=== PATIENT | male | born 1955 | race African-American/Black ===

== ENCOUNTER 2017-05-11 05:51 | Emergency (ER) | payer SELFPAY ==
[~2017-05-11] VITALS: Ht 177.8 cm; Wt 70.5 kg
[2017-05-11] MEDS ORDERED: KETOROLAC TROMETHAMINE 60 MG/2 ML VIAL IM ONE (06:45)
[2017-05-11 08:01] VITALS: BP 151/92
== END 2017-05-11 08:03 | disposition home or self-care (01) ==
LOC: EMS 05:52
DX: S13.4XXA Sprain of ligaments of cervical spine, initial encounter (principal); F17.210 Nicotine dependence, cigarettes, uncomplicated; V49.50XA Passenger injured in collision with unspecified motor vehicles in traffic accident, initial encounter; Y93.89 Activity, other specified; Y92.89 Other specified places as the place of occurrence of the external cause; Y99.8 Other external cause status
CPT/HCPCS: 72040; 96372; 99284; J1885

== ENCOUNTER 2017-09-26 16:38 | Emergency (ER) | payer SELFPAY ==
[~2017-09-26] VITALS: Ht 172.7 cm; Wt 65.9 kg
[2017-09-26 16:50] VITALS: BP 131/74
[2017-09-26] MEDS ORDERED: PERMETHRIN 5% 60 GM CREAM TP ONE (18:00)
[2017-09-26] MEDS ORDERED: DiphenhydrAMINE HCL 25 MG CAPSULE PO ONE (18:00)
== END 2017-09-26 18:20 | disposition home or self-care (01) ==
LOC: EMS 16:39
DX: B86 Scabies (principal); F17.210 Nicotine dependence, cigarettes, uncomplicated
CPT/HCPCS: 99283; 99406

== ENCOUNTER 2018-01-12 09:02 | Emergency (ER) | payer MEDICAID ==
[~2018-01-12] VITALS: Ht 177.8 cm; Wt 65.9 kg
[2018-01-12 09:50] LABS: BASOPHILS % (AUTO) 0.6 % (0.0-2.0); EOSINOPHILS % (AUTO) 2.3 % (1.0-6.0); HEMATOCRIT 41.4 % (41-53); HEMOGLOBIN 14.1 g/dL (13.5-17.5); LYMPHOCYTES % (AUTO) 23.6 % (22.0-44.0); MEAN CORPUSCULAR HEMOGLOBIN 30.6 pg (26.0-34.0); MEAN CORPUSCULAR VOLUME 90 fL (80-100); MONOCYTES # (AUTO) 0.8 K/uL (0.1-1.0); MONOCYTES % (AUTO) 17.5 % (2.0-9.0); NEUTROPHILS # (AUTO) 2.5 K/uL (1.8-7.7); PLATELET COUNT (AUTO) 223 K/uL (150-450); RED CELL DISTRIBUTION WIDTH 14.5 % (11.5-14.5)
[2018-01-12 09:58] LABS: ANION GAP 10 mmol/L (8-16); CALCIUM, TOTAL 8.7 mg/dL (8.8-10.5); CARBON DIOXIDE 26 mmol/L (22-29); CHLORIDE 102 mmol/L (98-107); GLOMERULAR FILTR. RATE CALC 44 mL/min (>60); GLUCOSE,RANDOM 96 mg/dL (70-110); POTASSIUM 3.3 mmol/L (3.5-5.1); SODIUM SERUM 138 mmol/L (136-145); UREA NITROGEN, BLOOD 19 mg/dL (7-18)
[2018-01-12 10:11] LABS: B-TYPE NATRIURETIC PEPTIDE 9 pg/mL (0-100)
[2018-01-12 10:23] LABS: ALANINE AMINOTRANSFERASE 20 U/L (12-78); ALBUMIN 3.6 g/dL (3.4-5.0); ALKALINE PHOSPHATASE 53 U/L (46-116); ASPARTATE AMINOTRANSFERASE 27 U/L (15-37); BILIRUBIN,TOTAL 0.3 mg/dL (0.1-1.0); CREATINE KINASE MB 1.9 ng/mL (0-5); CREATINE KINASE, TOTAL 187 U/L (39-308); TOTAL PROTEIN, SERUM 7.6 g/dL (6.4-8.2)
[2018-01-12] MEDS ORDERED: SODIUM CHLORIDE 0.9% 1,000 ML IV ONE (10:30)
[2018-01-12] MEDS ORDERED: KETOROLAC TROMETHAMINE 30 MG/ML VIAL IVP ONE (12:30)
[2018-01-12] MEDS ORDERED: ACETAMINOPHEN 500 MG TABLET PO ONE (12:30)
[2018-01-12 12:35] LABS: AMPHET/METH SCREEN,URINE POSITIVE (NEGATIVE); BARBITURATE SCREEN, URINE NEGATIVE (NEGATIVE); BENZODIAZEPINES SCREEN,URINE NEGATIVE (NEGATIVE); CANNABINOID SCREEN,URINE POSITIVE (NEGATIVE); COCAINE SCREEN,URINE NEGATIVE (NEGATIVE); METHADONE SCREEN, URINE NEGATIVE (NEGATIVE); OPIATE SCREEN,URINE NEGATIVE (NEGATIVE)
[2018-01-12 12:37] LABS: PHENCYCLIDINE SCREEN,URINE POSITIVE (NEGATIVE)
[2018-01-12 12:40] LABS: APPEARANCE,URINE CLOUDY (CLEAR); BILIRUBIN,URINE NEGATIVE (NEGATIVE); GLUCOSE, URINE (UA) NEGATIVE (NEGATIVE); KETONES,URINE NEGATIVE (NEGATIVE); LEUKOCYTE ESTERASE ,URINE NEGATIVE (NEGATIVE); NITRATE,URINE NEGATIVE (NEGATIVE); OCCULT BLOOD,URINE SMALL (NEGATIVE); PH,URINE 5.5 (5.0-8.0); PROTEIN,URINE POS 1+ (NEGATIVE)
[2018-01-12 12:56] LABS: BACTERIA,URINE None Seen /HPF (None Seen); HYALINE CASTS, URINE 0-2 /LPF (None Seen); RBC,URINE 0-2 /HPF (0-2); SQUAMOUS EPITHELIAL CELL,UR Few /LPF (None Seen); WBC,URINE 0-2 /HPF (0-5)
[2018-01-12 13:09] VITALS: BP 121/75
== END 2018-01-12 13:10 | disposition home or self-care (01) ==
LOC: EMS 09:03
DX: E86.0 Dehydration (principal); I12.9 Hypertensive chronic kidney disease with stage 1 through stage 4 chronic kidney disease, or unspecified chronic kidney disease; N18.9 Chronic kidney disease, unspecified; R06.02 Shortness of breath; M54.2 Cervicalgia; F17.210 Nicotine dependence, cigarettes, uncomplicated
CPT/HCPCS: 36415; 71046; 80053; 80307; 81001; 82550; 82553; 83880; 84484; 85025; 93005; 96361; 96374; 99285; J1885; J7030

== ENCOUNTER 2018-10-13 08:13 | Emergency (ER) | payer SELFPAY ==
[~2018-10-13] VITALS: Ht 177.8 cm; Wt 68.0 kg
[2018-10-13] MEDS ORDERED: HYDROCODONE/ACETAMINOPHEN 5-325 MG TABLET PO ONE (09:00)
[2018-10-13] MEDS ORDERED: KETOROLAC TROMETHAMINE 60 MG/2 ML VIAL IM ONE (10:30)
[2018-10-13 11:34] VITALS: BP 123/76
== END 2018-10-13 12:03 | disposition home or self-care (01) ==
LOC: EMS 08:14
DX: S70.01XA Contusion of right hip, initial encounter (principal); R51 Headache; F17.210 Nicotine dependence, cigarettes, uncomplicated; Y04.0XXA Assault by unarmed brawl or fight, initial encounter; Y93.89 Activity, other specified; Y92.89 Other specified places as the place of occurrence of the external cause; Y99.8 Other external cause status
CPT/HCPCS: 70450; 72125; 73502; 96372; 99284; 99406; J1885

== ENCOUNTER 2019-01-23 14:15 | Emergency (ER) | payer SELFPAY ==
[~2019-01-23] VITALS: Ht 180.3 cm; Wt 63.6 kg
[2019-01-23] MEDS ORDERED: KETOROLAC TROMETHAMINE 30 MG/ML VIAL IM ONE (15:45)
[2019-01-23 17:51] VITALS: BP 129/63
== END 2019-01-23 17:52 | disposition home or self-care (01) ==
LOC: EMS 14:16
DX: S70.02XA Contusion of left hip, initial encounter (principal); M54.32 Sciatica, left side; R03.0 Elevated blood-pressure reading, without diagnosis of hypertension; F17.210 Nicotine dependence, cigarettes, uncomplicated; W01.0XXA Fall on same level from slipping, tripping and stumbling without subsequent striking against object, initial encounter; Y93.89 Activity, other specified; Y92.89 Other specified places as the place of occurrence of the external cause; Y99.8 Other external cause status
CPT/HCPCS: 72170; 96372; 99283; 99406; J1885

== ENCOUNTER 2019-05-31 12:05 | Emergency (ER) | payer SELFPAY ==
[~2019-05-31] VITALS: Ht 180.3 cm; Wt 59.1 kg
[2019-05-31] MEDS ORDERED: ONDANSETRON HCL 4 MG/2 ML VIAL IVP ONE (12:30)
[2019-05-31] MEDS ORDERED: SODIUM CHLORIDE 0.9% 1,000 ML IV ONE (12:30)
[2019-05-31 12:59] LABS: BASOPHILS % (AUTO) 0.8 % (0.0-2.0); EOSINOPHILS % (AUTO) 1.6 % (1.0-6.0); HEMATOCRIT 42.7 % (41-53); HEMOGLOBIN 14.1 g/dL (13.5-17.5); LYMPHOCYTES # (AUTO) 1.5 K/uL (1.0-4.8); LYMPHOCYTES % (AUTO) 26.3 % (22.0-44.0); MEAN CORPUSCULAR HEMOGLOBIN 30.5 pg (26.0-34.0); MEAN CORPUSCULAR HGB CONC 33.1 G/dL (31.0-37.0); MEAN CORPUSCULAR VOLUME 92 fL (80-100); MONOCYTES # (AUTO) 0.6 K/uL (0.1-1.0); MONOCYTES % (AUTO) 10.7 % (2.0-9.0); NEUTROPHILS # (AUTO) 3.4 K/uL (1.8-7.7); NEUTROPHILS % (AUTO) 60.6 % (40.0-70.0); PLATELET COUNT (AUTO) 268 K/uL (150-450); RED BLOOD CELL COUNT(AUTO) 4.64 MIL/uL (4.50-5.90); RED CELL DISTRIBUTION WIDTH 14.2 % (11.5-14.5)
[2019-05-31 13:09] LABS: ANION GAP 8 mmol/L (8-16); CALCIUM, TOTAL 8.6 mg/dL (8.8-10.5); CARBON DIOXIDE 26 mmol/L (22-29); CHLORIDE 104 mmol/L (98-107); GLOMERULAR FILTR. RATE CALC 46 mL/min (>60); GLUCOSE,RANDOM 101 mg/dL (70-110); POTASSIUM 4.1 mmol/L (3.5-5.1); SODIUM SERUM 138 mmol/L (136-145); UREA NITROGEN, BLOOD 22 mg/dL (7-18)
[2019-05-31 13:17] LABS: ALANINE AMINOTRANSFERASE 16 U/L (12-78); ALBUMIN 3.7 g/dL (3.4-5.0); ALKALINE PHOSPHATASE 63 U/L (46-116); ASPARTATE AMINOTRANSFERASE 24 U/L (15-37); BILIRUBIN,TOTAL 0.5 mg/dL (0.1-1.0); TOTAL PROTEIN, SERUM 7.4 g/dL (6.4-8.2)
[2019-05-31 13:40] VITALS: BP 146/99
[2019-05-31 14:34] LABS: APPEARANCE,URINE CLEAR (CLEAR); BILIRUBIN,URINE NEGATIVE (NEGATIVE); GLUCOSE, URINE (UA) NEGATIVE (NEGATIVE); KETONES,URINE NEGATIVE (NEGATIVE); LEUKOCYTE ESTERASE ,URINE NEGATIVE (NEGATIVE); NITRATE,URINE NEGATIVE (NEGATIVE); OCCULT BLOOD,URINE NEGATIVE (NEGATIVE); PH,URINE 5.5 (5.0-8.0); PROTEIN,URINE NEGATIVE (NEGATIVE)
[2019-05-31 14:39] LABS: AMPHET/METH SCREEN,URINE POSITIVE (NEGATIVE); BARBITURATE SCREEN, URINE NEGATIVE (NEGATIVE); BENZODIAZEPINES SCREEN,URINE NEGATIVE (NEGATIVE); CANNABINOID SCREEN,URINE POSITIVE (NEGATIVE); COCAINE SCREEN,URINE NEGATIVE (NEGATIVE); METHADONE SCREEN, URINE NEGATIVE (NEGATIVE); OPIATE SCREEN,URINE NEGATIVE (NEGATIVE)
[2019-05-31 14:40] LABS: BACTERIA,URINE None Seen /HPF (None Seen); PHENCYCLIDINE SCREEN,URINE POSITIVE (NEGATIVE); RBC,URINE None Seen /HPF (0-2); WBC,URINE None Seen /HPF (0-5)
== END 2019-05-31 15:04 | disposition home or self-care (01) ==
LOC: EMS 12:06
DX: R42 Dizziness and giddiness (principal); R11.0 Nausea; I10 Essential (primary) hypertension; F17.210 Nicotine dependence, cigarettes, uncomplicated
CPT/HCPCS: 36415; 71046; 80053; 80307; 81001; 84484; 85025; 93005; 96361; 96374; 99284; G0480; J2405; J7030

== ENCOUNTER 2019-09-17 04:41 | Emergency (ER) | payer MEDICAID ==
[~2019-09-17] VITALS: Ht 177.8 cm; Wt 62.0 kg
[2019-09-17] MEDS ORDERED: CloNIDine HCL 0.2 MG TABLET PO ONE (05:15)
[2019-09-17] MEDS ORDERED: ONDANSETRON HCL 4 MG/2 ML VIAL IVP ONE ×2 (05:15→06:30)
[2019-09-17] MEDS ORDERED: SODIUM CHLORIDE 0.9% 1,000 ML IV ONE (05:15)
[2019-09-17 05:52] LABS: BASOPHILS % (AUTO) 0.4 % (0.0-2.0); EOSINOPHILS % (AUTO) 1.1 % (1.0-6.0); HEMATOCRIT 42.3 % (41-53); HEMOGLOBIN 13.6 g/dL (13.5-17.5); LYMPHOCYTES # (AUTO) 0.8 K/uL (1.0-4.8); LYMPHOCYTES % (AUTO) 11.1 % (22.0-44.0); MEAN CORPUSCULAR HEMOGLOBIN 29.5 pg (26.0-34.0); MEAN CORPUSCULAR HGB CONC 32.1 G/dL (31.0-37.0); MEAN CORPUSCULAR VOLUME 92 fL (80-100); MONOCYTES # (AUTO) 0.4 K/uL (0.1-1.0); MONOCYTES % (AUTO) 4.9 % (2.0-9.0); NEUTROPHILS % (AUTO) 82.5 % (40.0-70.0); PLATELET COUNT (AUTO) 269 K/uL (150-450); RED BLOOD CELL COUNT(AUTO) 4.61 MIL/uL (4.50-5.90); RED CELL DISTRIBUTION WIDTH 14.8 % (11.5-14.5)
[2019-09-17 06:02] LABS: ANION GAP 6 mmol/L (8-16); CALCIUM, TOTAL 8.9 mg/dL (8.8-10.5); CARBON DIOXIDE 29 mmol/L (22-29); CHLORIDE 102 mmol/L (98-107); CREATININE 1.41 mg/dL (0.60-1.30); GLOMERULAR FILTR. RATE CALC > 60 mL/min (>60); GLUCOSE,RANDOM 125 mg/dL (70-110); SODIUM SERUM 137 mmol/L (136-145); UREA NITROGEN, BLOOD 28 mg/dL (7-18)
[2019-09-17 06:27] LABS: ALANINE AMINOTRANSFERASE 20 U/L (12-78); ALBUMIN 4.2 g/dL (3.4-5.0); ALKALINE PHOSPHATASE 64 U/L (46-116); ASPARTATE AMINOTRANSFERASE 18 U/L (15-37); BILIRUBIN,TOTAL 0.2 mg/dL (0.1-1.0); CREATINE KINASE, TOTAL ONLY 210 U/L (39-308); LIPASE 153 U/L (73-393); TOTAL PROTEIN, SERUM 8.4 g/dL (6.4-8.2)
[2019-09-17] MEDS ORDERED: PB/HYOSCY/ATR/SCOP/LIDO/MAALOX 55 ML BOTTLE PO ONE (06:30)
[2019-09-17] MEDS ORDERED: FAMOTIDINE 10 MG/ML 2 ML VIAL IVP ONE (06:30)
[2019-09-17 07:02] LABS: APPEARANCE,URINE CLEAR (CLEAR); BILIRUBIN,URINE NEGATIVE (NEGATIVE); GLUCOSE, URINE (UA) NEGATIVE (NEGATIVE); KETONES,URINE NEGATIVE (NEGATIVE); LEUKOCYTE ESTERASE ,URINE NEGATIVE (NEGATIVE); NITRATE,URINE NEGATIVE (NEGATIVE); OCCULT BLOOD,URINE NEGATIVE (NEGATIVE); PROTEIN,URINE NEGATIVE (NEGATIVE); UROBILINOGEN,URINE 0.2 mg/dL (<=1.0)
[2019-09-17 07:06] LABS: AMPHET/METH SCREEN,URINE POSITIVE (NEGATIVE); BARBITURATE SCREEN, URINE NEGATIVE (NEGATIVE); BENZODIAZEPINES SCREEN,URINE NEGATIVE (NEGATIVE); CANNABINOID SCREEN,URINE NEGATIVE (NEGATIVE); COCAINE SCREEN,URINE NEGATIVE (NEGATIVE); METHADONE SCREEN, URINE NEGATIVE (NEGATIVE); OPIATE SCREEN,URINE NEGATIVE (NEGATIVE)
[2019-09-17 07:10] LABS: PHENCYCLIDINE SCREEN,URINE POSITIVE (NEGATIVE)
[2019-09-17 07:23] LABS: BACTERIA,URINE None Seen /HPF (None Seen); RBC,URINE None Seen /HPF (0-2); WBC,URINE None Seen /HPF (0-5)
[2019-09-17 07:53] VITALS: BP 157/81
== END 2019-09-17 07:54 | disposition home or self-care (01) ==
LOC: EMS 04:42
DX: F15.129 Other stimulant abuse with intoxication, unspecified (principal); F16.929 Hallucinogen use, unspecified with intoxication, unspecified; F17.210 Nicotine dependence, cigarettes, uncomplicated
CPT/HCPCS: 36415; 80053; 80307; 81001; 82550; 83605; 83690; 83735; 83880; 84484; 85025; 93005; 96361; 96374; 96375; 99284; 99406; G0480; J2405; J3490; J7030

== ENCOUNTER 2019-12-16 00:44 | Emergency (ER) | payer MEDICAID ==
[~2019-12-16] VITALS: Ht 185.4 cm; Wt 70.5 kg
[2019-12-16 02:41] VITALS: BP 130/78
== END 2019-12-16 02:40 | disposition home or self-care (01) ==
LOC: EMS 00:44
DX: M79.631 Pain in right forearm (principal); M25.531 Pain in right wrist; I10 Essential (primary) hypertension; F17.210 Nicotine dependence, cigarettes, uncomplicated
CPT/HCPCS: 99283; Z7502

== ENCOUNTER 2020-07-15 16:29 | Emergency (ER) | payer MEDICAID ==
[~2020-07-15] VITALS: Ht 180.3 cm; Wt 68.2 kg
[2020-07-15] MEDS ORDERED: AMOX TR/POT CLAV 875 MG/125 MG TABLET PO ONE (17:45)
[2020-07-15] MEDS ORDERED: TraMADol HCL 50 MG TABLET PO ONE (17:45)
[2020-07-15 18:00] LABS: BASOPHILS % (AUTO) 0.6 % (0.0-2.0); CALCIUM, TOTAL 9.3 mg/dL (8.8-10.5); CREATININE 1.36 mg/dL (0.60-1.30); EOSINOPHILS % (AUTO) 2.9 % (1.0-6.0); HEMATOCRIT 36.2 % (41-53); HEMOGLOBIN 11.7 g/dL (13.5-17.5); LYMPHOCYTES # (AUTO) 2.1 K/uL (1.0-4.8); LYMPHOCYTES % (AUTO) 19.8 % (22.0-44.0); MEAN CORPUSCULAR HEMOGLOBIN 30.1 pg (26.0-34.0); MEAN CORPUSCULAR HGB CONC 32.4 G/dL (31.0-37.0); MEAN CORPUSCULAR VOLUME 93 fL (80-100); MONOCYTES # (AUTO) 0.8 K/uL (0.1-1.0); MONOCYTES % (AUTO) 7.6 % (2.0-9.0); NEUTROPHILS # (AUTO) 7.3 K/uL (1.8-7.7); NEUTROPHILS % (AUTO) 69.1 % (40.0-70.0); PLATELET COUNT (AUTO) 318 K/uL (150-450); POTASSIUM 4.6 mmol/L (3.5-5.1); RED BLOOD CELL COUNT(AUTO) 3.91 MIL/uL (4.50-5.90); RED CELL DISTRIBUTION WIDTH 14.4 % (11.5-14.5)
[2020-07-15 18:06] LABS: ALBUMIN 3.9 g/dL (3.4-5.0); BILIRUBIN,TOTAL 0.5 mg/dL (0.1-1.0); TOTAL PROTEIN, SERUM 8.1 g/dL (6.4-8.2)
[2020-07-15 18:22] VITALS: BP 158/92
== END 2020-07-15 18:37 | disposition home or self-care (01) ==
LOC: EMS 16:29
DX: S20.212A Contusion of left front wall of thorax, initial encounter (principal); K04.7 Periapical abscess without sinus; I10 Essential (primary) hypertension; F17.210 Nicotine dependence, cigarettes, uncomplicated; X58.XXXA Exposure to other specified factors, initial encounter; Y93.89 Activity, other specified; Y92.89 Other specified places as the place of occurrence of the external cause; Y99.8 Other external cause status
CPT/HCPCS: 93005; 99285; 36415-L1; 36415-TC; 71045-TC

== ENCOUNTER 2023-01-19 00:57 | Emergency (ER) | payer MEDICARE, OTHER ==
[~2023-01-19] VITALS: Ht 180.3 cm; Wt 56.8 kg
[2023-01-19 02:07] VITALS: TEMP 98.4
[2023-01-19] MEDS ORDERED: ASPIRIN 81 MG CHEWABLE TABLET PO ONE (02:30)
[2023-01-19] MEDS ORDERED: NITROGLYCERIN 2% (1 GM=INCH) OINTMENT PACKET TP ONE (02:30)
[2023-01-19 02:37] LABS: EOSINOPHILS % (AUTO) 3.2 % (1.0-6.0); HEMATOCRIT 39.5 % (41-53); LYMPHOCYTES # (AUTO) 2.5 K/uL (1.0-4.8); LYMPHOCYTES % (AUTO) 30.3 % (22.0-44.0); MEAN CORPUSCULAR HEMOGLOBIN 30.6 pg (26.0-34.0); MEAN CORPUSCULAR HGB CONC 32.9 G/dL (31.0-37.0); MEAN CORPUSCULAR VOLUME 93 fL (80-100); MONOCYTES % (AUTO) 11.7 % (2.0-9.0); NEUTROPHILS # (AUTO) 4.5 K/uL (1.8-7.7); NEUTROPHILS % (AUTO) 53.8 % (40.0-70.0); PLATELET COUNT (AUTO) 282 K/uL (150-450); RED BLOOD CELL COUNT(AUTO) 4.25 MIL/uL (4.50-5.90); RED CELL DISTRIBUTION WIDTH 14.8 % (11.5-14.5)
[2023-01-19 02:50] LABS: CALCIUM, TOTAL 8.6 mg/dL (8.8-10.5); CREATININE 1.24 mg/dL (0.60-1.30); POTASSIUM 3.7 mmol/L (3.5-5.1)
[2023-01-19 02:55] LABS: PROTHROMBIN TIME 10.1 SEC (9.4-11.6)
[2023-01-19 03:15] LABS: ALBUMIN 3.3 g/dL (3.4-5.0); BILIRUBIN,TOTAL 0.2 mg/dL (0.1-1.0); TOTAL PROTEIN, SERUM 6.9 g/dL (6.4-8.2)
[2023-01-19] MEDS ORDERED: AmLODIPine BESYLATE 5 MG TABLET PO ONE (04:30)
[2023-01-19] MEDS ORDERED: AMLO-257 PO (04:31)
[2023-01-19 04:57] LABS: APPEARANCE,URINE CLEAR (CLEAR); BILIRUBIN,URINE NEGATIVE (NEGATIVE); GLUCOSE, URINE (UA) NEGATIVE (NEGATIVE); KETONES,URINE NEGATIVE (NEGATIVE); LEUKOCYTE ESTERASE ,URINE NEGATIVE (NEGATIVE); NITRATE,URINE NEGATIVE (NEGATIVE); OCCULT BLOOD,URINE NEGATIVE (NEGATIVE); SPECIFIC GRAVITIY, URINE 1.023 (1.003-1.030); UROBILINOGEN,URINE <=1.0 mg/dL (<=1.0)
[2023-01-19 05:00] LABS: PROTEIN,URINE NEGATIVE (NEGATIVE)
[2023-01-19 05:07] LABS: AMPHET/METH SCREEN,URINE POSITIVE (NEGATIVE); BARBITURATE SCREEN, URINE NEGATIVE (NEGATIVE); BENZODIAZEPINES SCREEN,URINE NEGATIVE (NEGATIVE); CANNABINOID SCREEN,URINE POSITIVE (NEGATIVE); COCAINE SCREEN,URINE NEGATIVE (NEGATIVE); METHADONE SCREEN, URINE NEGATIVE (NEGATIVE); OPIATE SCREEN,URINE NEGATIVE (NEGATIVE); PHENCYCLIDINE SCREEN,URINE POSITIVE (NEGATIVE)
[2023-01-19 05:18] VITALS: BP 143/75; PULSE 80; RESP 17
== END 2023-01-19 05:44 | disposition home or self-care (01) ==
LOC: EMS 01:00
DX: M62.838 Other muscle spasm (principal); R07.89 Other chest pain; I10 Essential (primary) hypertension; F15.10 Other stimulant abuse, uncomplicated; F17.210 Nicotine dependence, cigarettes, uncomplicated; Z91.148 Patient's other noncompliance with medication regimen for other reason
CPT/HCPCS: 71045; 80053; 80307; 81003; 82550; 83880; 84484; 85025; 85610; 85730; 93005; 99285; 36415-L1; 36415-TC

== ENCOUNTER 2023-08-03 13:51 | Emergency (ER) | payer MEDICARE, OTHER ==
[~2023-08-03] VITALS: Ht 180.3 cm; Wt 68.2 kg
[~2023-08-03 13:51] MED LIST: AMLO-257 PO
[2023-08-03 13:55] VITALS: TEMP 98
[2023-08-03 15:49] VITALS: BP 157/102; PULSE 88; RESP 16
== END 2023-08-03 16:13 | disposition home or self-care (01) ==
LOC: EMS 14:01
DX: I10 Essential (primary) hypertension (principal); F17.210 Nicotine dependence, cigarettes, uncomplicated; Z13.9 Encounter for screening, unspecified
CPT/HCPCS: 99281; Z7502

== ENCOUNTER 2023-08-12 12:59 | Emergency (ER) | payer MEDICARE, OTHER ==
[~2023-08-12] VITALS: Ht 170.2 cm; Wt 61.4 kg
[2023-08-12 13:04] VITALS: BP 134/82; PULSE 100; RESP 18; TEMP 98.2
[2023-08-12] MEDS: KETOROLAC TROMETHAMINE 30 MG/ML VIAL IM ONE (13:51)
[2023-08-12] MEDS: LIDOCAINE 5% TRANSDERMAL PATCH TD ONE (13:51)
== END 2023-08-12 13:52 | disposition home or self-care (01) ==
LOC: EMS 12:59
DX: M54.32 Sciatica, left side (principal); I10 Essential (primary) hypertension; F17.210 Nicotine dependence, cigarettes, uncomplicated; Z13.9 Encounter for screening, unspecified
CPT/HCPCS: 99283; 96372; J1885

== ENCOUNTER 2023-08-17 07:27 | Emergency (ER) | payer MEDICARE, OTHER ==
[~2023-08-17] VITALS: Ht 170.2 cm; Wt 63.6 kg
[2023-08-17 07:32] VITALS: TEMP 98.3
[2023-08-17 08:03] LABS: APPEARANCE,URINE CLEAR (CLEAR); BILIRUBIN,URINE NEGATIVE (NEGATIVE); COLOR,URINE LIGHT YELLOW (YELLOW); GLUCOSE, URINE (UA) NEGATIVE (NEGATIVE); KETONES,URINE NEGATIVE (NEGATIVE); LEUKOCYTE ESTERASE ,URINE NEGATIVE (NEGATIVE); NITRATE,URINE NEGATIVE (NEGATIVE); OCCULT BLOOD,URINE NEGATIVE (NEGATIVE); PH,URINE 5.5 (5.0-8.0); PROTEIN,URINE TRACE mg/dL (NEGATIVE); SPECIFIC GRAVITIY, URINE 1.013 (1.003-1.030); UROBILINOGEN,URINE <=1.0 mg/dL (<=1.0)
[2023-08-17 08:06] LABS: BASOPHILS % (AUTO) 1.2 % (0.0-2.0); EOSINOPHILS % (AUTO) 2.7 % (1.0-6.0); HEMOGLOBIN 14.4 g/dL (13.5-17.5); LYMPHOCYTES # (AUTO) 1.9 K/uL (1.0-4.8); LYMPHOCYTES % (AUTO) 23.4 % (22.0-44.0); MEAN CORPUSCULAR HEMOGLOBIN 29.9 pg (26.0-34.0); MEAN CORPUSCULAR HGB CONC 32.8 G/dL (31.0-37.0); MEAN CORPUSCULAR VOLUME 91 fL (80-100); MONOCYTES # (AUTO) 0.5 K/uL (0.1-1.0); MONOCYTES % (AUTO) 6.1 % (2.0-9.0); NEUTROPHILS # (AUTO) 5.4 K/uL (1.8-7.7); NEUTROPHILS % (AUTO) 66.6 % (40.0-70.0); PLATELET COUNT (AUTO) 316 K/uL (150-450); RED BLOOD CELL COUNT(AUTO) 4.83 MIL/uL (4.50-5.90); RED CELL DISTRIBUTION WIDTH 15.8 % (11.5-14.5); WHITE BLOOD COUNT (AUTO) 8.1 K/uL (4.5-11.0)
[2023-08-17 08:14] LABS: CALCIUM, TOTAL 9.3 mg/dL (8.8-10.5); CREATININE 1.44 mg/dL (0.60-1.30); POTASSIUM 4.1 mmol/L (3.5-5.1)
[2023-08-17 08:17] LABS: TROPONIN I-HIGH SENSITIVITY 16 ng/L (<76)
[2023-08-17 08:23] LABS: ALBUMIN 3.5 g/dL (3.4-5.0); BILIRUBIN,TOTAL 0.4 mg/dL (0.1-1.0); TOTAL PROTEIN, SERUM 7.8 g/dL (6.4-8.2)
[2023-08-17] MEDS: CloNIDine HCL 0.1 MG TABLET PO ONE ×2 (09:24→11:17)
[2023-08-17] MEDS: AmLODIPine BESYLATE 5 MG TABLET PO ONE (09:25)
[2023-08-17] MEDS: KETOROLAC TROMETHAMINE 60 MG/2 ML VIAL IM ONE (11:16)
[2023-08-17 12:08] VITALS: BP 142/97; PULSE 80; RESP 15
[2023-08-17] MEDS ORDERED: AMLO-257 PO (12:08)
[2023-08-18] MEDS ORDERED: AMLO5TAB66 PO (12:32)
[2023-08-18] MEDS ORDERED: NAPR-1025 PO (12:32)
[2023-08-18] MEDS ORDERED: AMOX875T2 PO (12:32)
[2023-08-18] MEDS ORDERED: ACET-66 PO (12:32)
== END 2023-08-17 12:14 | disposition home or self-care (01) ==
LOC: EMS 07:28
DX: I10 Essential (primary) hypertension (principal); R42 Dizziness and giddiness; F17.210 Nicotine dependence, cigarettes, uncomplicated
CPT/HCPCS: 99285; 71045; 80053; 81003; 83690; 84484; 85025; 36415; 93005; 96372; J1885

== ENCOUNTER → 2023-08-18 | Emergency (ER) | payer MEDICARE, OTHER ==
[~2023-08-18] VITALS: Ht 182.9 cm; Wt 63.6 kg
[~2023-08-18] MED LIST changes: +ACET-66 PO; +AMLO5TAB66 PO; +AMOX875T2 PO; +NAPR-1025 PO
[2023-08-18 20:25] VITALS: BP 135/78; PULSE 85; RESP 18; TEMP 98.6
[2023-08-18 22:16] LABS: BASOPHILS % (AUTO) 0.6 % (0.0-2.0); EOSINOPHILS % (AUTO) 1.9 % (1.0-6.0); HEMATOCRIT 43.1 % (41-53); HEMOGLOBIN 14.1 g/dL (13.5-17.5); LYMPHOCYTES # (AUTO) 1.6 K/uL (1.0-4.8); LYMPHOCYTES % (AUTO) 21.3 % (22.0-44.0); MEAN CORPUSCULAR HEMOGLOBIN 29.8 pg (26.0-34.0); MEAN CORPUSCULAR HGB CONC 32.7 G/dL (31.0-37.0); MEAN CORPUSCULAR VOLUME 91 fL (80-100); MONOCYTES # (AUTO) 0.7 K/uL (0.1-1.0); MONOCYTES % (AUTO) 8.8 % (2.0-9.0); NEUTROPHILS # (AUTO) 5.1 K/uL (1.8-7.7); NEUTROPHILS % (AUTO) 67.4 % (40.0-70.0); PLATELET COUNT (AUTO) 294 K/uL (150-450); RED BLOOD CELL COUNT(AUTO) 4.73 MIL/uL (4.50-5.90); RED CELL DISTRIBUTION WIDTH 15.6 % (11.5-14.5); WHITE BLOOD COUNT (AUTO) 7.6 K/uL (4.5-11.0)
[2023-08-18 22:26] LABS: CALCIUM, TOTAL 9.3 mg/dL (8.8-10.5); CREATININE 1.75 mg/dL (0.60-1.30); POTASSIUM 4.5 mmol/L (3.5-5.1)
[2023-08-18 22:34] LABS: TROPONIN I-HIGH SENSITIVITY 15 ng/L (<76)
[2023-08-18 22:50] LABS: ALBUMIN 3.7 g/dL (3.4-5.0); BILIRUBIN,TOTAL 0.4 mg/dL (0.1-1.0); TOTAL PROTEIN, SERUM 7.6 g/dL (6.4-8.2)
[2023-08-18] MEDS: PB/HYOSCY/ATR/SCOP/LIDO/MAALOX 55 ML BOTTLE PO ONE (23:40)
== END | disposition still patient (30) ==
LOC: EMS 20:08
DX: K29.70 Gastritis, unspecified, without bleeding (principal); I10 Essential (primary) hypertension; F17.210 Nicotine dependence, cigarettes, uncomplicated
CPT/HCPCS: 71045; 80053; 82550; 84484; 85025; 93005; 99285; 36415-L1; 36415-TC

== ENCOUNTER → 2023-08-18 | Emergency (ER) | payer MEDICARE, OTHER ==
[~2023-08-18] VITALS: Ht 172.7 cm; Wt 65.9 kg
[2023-08-18 12:32] VITALS: BP 138/88; PULSE 89; RESP 18; TEMP 98.3
== END | disposition left against medical advice (07) ==
LOC: EMS 12:18
DX: R11.0 Nausea (principal); Z53.21 Procedure and treatment not carried out due to patient leaving prior to being seen by health care provider
CPT/HCPCS: 99281; Z7502

== ENCOUNTER 2023-09-22 16:14 | Emergency (ER) | payer MEDICARE, OTHER ==
[~2023-09-22] VITALS: Ht 182.9 cm; Wt 63.6 kg
[~2023-09-22 16:14] MED LIST changes: -AMLO-257 PO
[2023-09-22 16:43] VITALS: TEMP 98.4
[2023-09-22] MEDS: TraMADol HCL 50 MG TABLET PO ONE (17:44)
[2023-09-22] MEDS: LIDOCAINE 5% TRANSDERMAL PATCH TD ONE (19:46)
[2023-09-22] MEDS: KETOROLAC TROMETHAMINE 30 MG/ML VIAL IM ONE (19:46)
[2023-09-22] MEDS ORDERED: LIDO700A15 TP (20:36)
[2023-09-22] MEDS ORDERED: TRAM50TA5 PO (20:36)
[2023-09-22 22:38] VITALS: BP 140/82; PULSE 85; RESP 16
== END 2023-09-22 23:00 | disposition home or self-care (01) ==
LOC: EMS 16:14
DX: S70.02XA Contusion of left hip, initial encounter (principal); M54.50 Low back pain, unspecified; I10 Essential (primary) hypertension; F17.210 Nicotine dependence, cigarettes, uncomplicated; X58.XXXA Exposure to other specified factors, initial encounter; Y93.89 Activity, other specified; Y92.89 Other specified places as the place of occurrence of the external cause; Y99.8 Other external cause status
CPT/HCPCS: 99284; 72100; 73503; 96372; J1885

== ENCOUNTER 2024-07-02 14:43 | Emergency (ER) | payer MEDICARE, OTHER ==
[~2024-07-02] VITALS: Ht 180.3 cm; Wt 61.4 kg
[~2024-07-02 14:43] MED LIST changes: -AMOX875T2 PO; -NAPR-1025 PO; +RISP-31 PO
[2024-07-02 14:52] VITALS: BP 96/58; PULSE 111; RESP 16; TEMP 98.4; O2SAT 98
[2024-07-02 15:04] LABS: COVID AG,FIA SOURCE NASAL SWAB
[2024-07-02 15:31] LABS: SARS-COV2 (COVID) ANTIGEN,FIA Negative (Negative)
[2024-07-02 15:33] LABS: INFLUENZA TYPE A NEGATIVE FOR TYPE A (NEGATIVE); INFLUENZA TYPE B NEGATIVE FOR TYPE B (NEGATIVE)
== END 2024-07-02 16:54 | disposition left against medical advice (07) ==
LOC: EMS 14:43
DX: J11.1 Influenza due to unidentified influenza virus with other respiratory manifestations (principal); Z20.822 Contact with and (suspected) exposure to COVID-19; Z53.21 Procedure and treatment not carried out due to patient leaving prior to being seen by health care provider
CPT/HCPCS: 87804

== ENCOUNTER 2025-01-10 00:24 | Emergency (ER) | payer MEDICARE, OTHER ==
[2025-01-10 02:54] VITALS: BP 156/98; PULSE 72; RESP 17; O2SAT 98
[2025-01-10] MEDS ORDERED: IBUP-1492 PO (03:02)
[2025-01-10] MEDS: KETOROLAC TROMETHAMINE 60 MG/2 ML VIAL IM ONE (03:20)
== END 2025-01-10 03:30 | disposition home or self-care (01) ==
LOC: EMS 00:24
DX: M25.552 Pain in left hip (principal); M54.2 Cervicalgia; I10 Essential (primary) hypertension; F17.210 Nicotine dependence, cigarettes, uncomplicated; Z79.899 Other long term (current) drug therapy
CPT/HCPCS: 99283; 96372; J1885